=== PATIENT | female | born 1995 | race Asian ===

== ENCOUNTER → 2021-07-26 | Outpatient (CLI) | payer SELFPAY ==
--- NOTE | 2021-07-26 13:13 | Diagnostic Imaging Report ---
INDICATION: Positive TB test. Single PA view of the chest is obtained. COMPARISON: No previous study is available for comparison at this time. FINDINGS: Heart size and pulmonary vasculature are within normal limits, and the lungs are clear, bilaterally. IMPRESSION: Unremarkable chest. Dictated by: Dictated on workstation # [id number]
== END ==
LOC: RAD 12:23
PROVIDERS: ATTEND Nurse Practitioner Family
DX: Z11.1 Encounter for screening for respiratory tuberculosis (principal); R76.11 Nonspecific reaction to tuberculin skin test without active tuberculosis
CPT/HCPCS: 71045